=== PATIENT | male | born 1945 | race Caucasian/White ===

== ENCOUNTER → 2017-04-02 | Outpatient (CLI) | payer MEDICARE, OTHER ==
--- NOTE | 2017-04-02 15:53 | US ---
EXAMINATION TYPE: US venous doppler duplex LE LT DATE OF EXAM: 04/02/2017 2:54 PM COMPARISON: NONE CLINICAL HISTORY: R60.0 LOCALIZED EDEMA. Left leg edema. SIDE PERFORMED: Left TECHNIQUE: The lower extremity deep venous system is examined utilizing real time linear array sonog yaneth with graded compression, doppler sonography and color-flow sonography. VESSELS IMAGED: External Iliac Vein (EIV) Common Femoral Vein Deep Femoral Vein Greater Saphenous Vein * Femoral Vein Popliteal Vein Small Saphenous Vein * Proximal Calf Veins (* superficial vessels) Left Leg: Negative for DVT Grayscale, color doppler, spectral doppler imaging performed of the deep veins of the left lower extr emity. There is normal flow, compressibility, vascular waveforms in the left lower extremity. IMPRESSION: No ultrasound evidence for acute DVT in the left lower extremity.
== END | disposition home or self-care (01) ==
LOC: RADUSWWP 14:18
PROVIDERS: ATTEND Family Medicine
DX: R60.0 Localized edema (principal)

== ENCOUNTER → 2017-05-03 | Outpatient (CLI) | payer MEDICARE, OTHER ==
[2017-05-03 15:00] LABS: Potassium 4.5 mmol/L (3.5-5.1)
== END | disposition home or self-care (01) ==
LOC: LABWHC1 14:12
PROVIDERS: ATTEND Anesthesiology
DX: Z01.812 Encounter for preprocedural laboratory examination (principal)
CPT/HCPCS: 80051

== ENCOUNTER 2017-05-09 06:11 | Day surgery (SDC) | payer MEDICARE, OTHER ==
[2017-05-03 11:46] VITALS: BMI 35.2
[~2017-05-09 06:11] MED LIST: DEXAMETHASONE SOD PHOSPHATE 10 MG/ML 1 ML VIAL IV ONE; HEPARIN SODIUM,PORCINE 5,000 UNIT/ML 1 ML VIAL SQ ONE; LACTATED RINGERS 1,000 ML IV SCH; LIDOCAINE 1% 20 ML VIAL (10MG/ML) FOR IV START INTRADERMA PRN; MIDAZOLAM 2 MG/2 ML VIAL IV PRN; ONDANSETRON 4 MG/2 ML VIAL IVP ONE; SCOPOLAMINE 1.5MG/72HR PATCH TRANSDERM ONE; ceFAZolin 2 GM in SODIUM CHLORIDE 0.9% 100 ML IVPB ONE
--- NOTE | 2017-05-09 08:25 | P.GSHP ---
History of Present Illness H&P Date: 05/09/17 Chief Complaint: Incisional hernia This is a 71-year-old male who presents today for laparoscopic robotic-assisted repair of incisional hernia. Patient has developed an incisional hernia after reversal of colostomy. Patient's previous history of rectal foreign body with subsequent colostomy. He also developed a staph infection of his midline incision at the time of his colostomy Past Medical History Past Medical History: Atrial Fibrillation, Hyperlipidemia, Hypertension Additional Past Medical History / Comment(s): HX BOWEL OBSTRUCTION,.KIDNEY STONES, ARTHRITIS History of Any Multi-Drug Resistant Organisms: MRSA Date of last positivie culture/infection: 05/23/16 MDRO Source:: ABDOMINAL INCISION Past Surgical History: Bowel Resection, Heart Catheterization Additional Past Surgical History / Comment(s): I&D spider bite on back, fatty tumor removed from shoulder, COLOSTOMY. THEN ON 09-26-16 REVERSAL,. COLONOSCOPY Past Anesthesia/Blood Transfusion Reactions: No Reported Reaction Smoking Status: Former smoker - Past Family History Mother Family Medical History: No Reported History Medications and Allergies Home Medications Medication Instructions Recorded Confirmed Type Furosemide [Lasix] 20 mg PO BID 07/08/15 05/09/17 History Metoprolol Succinate [Toprol XL] 100 mg PO DAILY 07/08/15 05/09/17 History Potassium Chloride [Klor-Con 20] 20 meq PO BID 07/08/15 05/09/17 History Rivaroxaban [Xarelto] 20 mg PO DAILY 07/08/15 05/09/17 History Simvastatin [Zocor] 20 mg PO HS 07/08/15 05/09/17 History buPROPion HCL [Wellbutrin SR] 150 mg PO QAM 07/08/15 05/09/17 History Cholecalciferol [Vitamin D3] 5,000 unit PO DAILY 05/03/17 05/09/17 History Allergies Allergy/AdvReac Type Severity Reaction Status Date / Time No Known Allergies Allergy Verified 05/09/17 06:36 Surgical - Exam Vital Signs Temp Pulse Resp BP Pulse Ox 98.2 F 67 16 161/83 97 05/09/17 06:34 05/09/17 06:34 05/09/17 06:34 05/09/17 06:34 05/09/17 06:34 - General well developed, no distress - Eyes PERRL - ENT normal pinna - Neck no masses - Respiratory normal expansion - Cardiovascular Rhythm: regular - Abdomen 8 cm reducible incisional hernia located along his mid line scar. Abdomen: soft Assessment and Plan Plan: Incisional hernia. We'll perform laparoscopic robotic assistance repair.
[2017-05-09] MEDS ORDERED: MIDAZOLAM 2 MG/2 ML VIAL ONE (08:26)
[2017-05-09] MEDS ORDERED: SUCCINYLCHOLINE CHLORIDE VIAL 200 MG/10 ML VIAL IV ONE (08:26)
[2017-05-09] MEDS ORDERED: GLYCOPYRROLATE 0.2 MG/ML 2 ML VIAL ONE (08:26)
[2017-05-09] MEDS ORDERED: PROPOFOL 10 MG/ML 20 ML VIAL IV ONE (08:26)
[2017-05-09] MEDS ORDERED: NEOSTIGMINE 1 MG/ML 10 ML VIAL ONE (08:26)
[2017-05-09] MEDS ORDERED: LIDOCAINE 1% INJ 10MG/ML (20 ML MDV) ONE (08:26)
[2017-05-09] MEDS ORDERED: fentaNYL (PF) 50 MCG/ML 2 ML AMP ONE (08:26)
[2017-05-09] MEDS ORDERED: ROCURONIUM BROMIDE 10 MG/ML 10 ML VIAL IV ONE (08:26)
[2017-05-09] MEDS ORDERED: PHENYLEPHRINE-0.9% NACL SYG 1 MG/10 ML SYRINGE ONE (08:26)
[2017-05-09] MEDS ORDERED: BUPIVACAIN-EPI 0.25%-1:200,000 30 ML VIAL SQ ONE (08:52)
[2017-05-09] MEDS ORDERED: LACTATED RINGERS 1,000 ML IV ONE (09:07)
[2017-05-09 10:50] VITALS: TEMP 97.8
[2017-05-09] MEDS: HYDROmorphone 1 MG/ML 1 ML SYRINGE IVP PRN ×6 (10:50→11:46)
--- NOTE | 2017-05-09 11:22 | P.OP ---
Date of Procedure: 05/09/17 Preoperative Diagnosis: Incisional hernia Postoperative Diagnosis: Incisional hernia Adhesions Procedure(s) Performed: Laparoscopic robotic-assisted repair of incisional hernia Laparoscopic lysis of extensive adhesions Implants: Anesthesia: INDRAA Surgeon: Suresh Naidu Estimated Blood Loss (ml): 15 Pathology: none sent Condition: stable Disposition: PACU Indications for Procedure: Operative Findings: Description of Procedure: Patient's placed on the operative table in the supine position. He received general anesthesia. His abdomen was prepped and draped usual sterile fashion. The skin incision sites were anesthetized 1% local Xylocaine. The abdomen was entered in the right upper quadrant. Using a blade less 5 mm optical trocar the peritoneal cavity is entered under direct visualization. After adequate insufflation the laparoscope was placed back the pleural cavity. Next a 8 mm robotic trochars placed in right lower quadrant and then a 12 mm trochars placed in the right lateral position. And the original 5 mm trocar was exchanged for an 8 mm robotic trocar. The patient's placed in the right side up position. He was undocked the robot. The patient extensive adhesions on the midline. Using the Metzenbaum scissors and hook cautery the adhesions were lysed robotically. The proximal a 45 minutes of operative time used to lyse the extensive adhesions. Once the adhesions were lysed. The fascial defect was incised. The fascial defect was then closed with #1 stratify suture. 2 sutures used to close the fascial defect. Next the repair was buttressed with ventral light ST mesh. And this was secured with 20 the lock suture. The patient was then undocked the robot. The needles were retrieved. The fascia of the 12 mm trocar site was closed with 0 Ethibond suture. The skin was closed interrupted 3-0 Monocryl suture. Dermabond was applied. Patient top she will was sent to recovery in stable condition.
[2017-05-09] MEDS ORDERED: HYDROcodone/APAP 7.5-325MG 1 EACH TAB PO ONE (12:28)
[2017-05-09 14:02] VITALS: RESP 18
[2017-05-09 14:03] VITALS: PULSE 71
[2017-05-09 14:04] VITALS: BP 132/65
== END 2017-05-09 14:57 | disposition home or self-care (01) ==
LOC: OR 06:11
PROVIDERS: ATTEND Surgery
DX: K43.2 Incisional hernia without obstruction or gangrene (principal); K66.0 Peritoneal adhesions (postprocedural) (postinfection); I48.91 Unspecified atrial fibrillation; Z79.01 Long term (current) use of anticoagulants; E78.5 Hyperlipidemia, unspecified; I10 Essential (primary) hypertension; Z87.891 Personal history of nicotine dependence; F41.9 Anxiety disorder, unspecified; F32.9 Major depressive disorder, single episode, unspecified; Z79.899 Other long term (current) drug therapy; Z93.3 Colostomy status
CPT/HCPCS: 49654; C1781; J2250; J0330; J1644; J1100; J2710; J0690; J2405; J2001; J3010; J1170; J2370; J2704

== ENCOUNTER → 2018-12-05 | Outpatient (CLI) | payer MEDICARE, OTHER ==
[2018-12-05 12:43] LABS: HCT 45.6 % (39.0-53.0); MCH 31.8 pg (25.0-35.0); MCHC 32.8 g/dL (31.0-37.0); MCV 97.2 fL (80.0-100.0); Platelet Count 184 k/uL (150-450); RDW 12.8 % (11.5-15.5)
[2018-12-05 12:54] LABS: Potassium 4.6 mmol/L (3.5-5.1)
== END ==
LOC: LABPAT 12:08
PROVIDERS: ATTEND Internal Medicine Interventional Cardiology
DX: Z01.812 Encounter for preprocedural laboratory examination (principal); I25.10 Atherosclerotic heart disease of native coronary artery without angina pectoris; I10 Essential (primary) hypertension; R07.9 Chest pain, unspecified
CPT/HCPCS: 80051; 82565; 84520; 85027

== ENCOUNTER → 2018-12-11 | Day surgery (SDC) | payer MEDICARE, OTHER ==
[2018-12-05 12:45] VITALS: BMI 27.7
[~2018-12-11] MED LIST changes: +ALPRAZolam 0.25 MG TAB PO PRN; +ALPRAZolam 0.5 MG TAB PO ONE; +ALPRAZolam 0.5 MG TAB PO PRN; +ASPIRIN 325 MG TAB PO STA; +ATORVASTATIN 80 MG TAB PO STA; -DEXAMETHASONE SOD PHOSPHATE 10 MG/ML 1 ML VIAL IV ONE; +HEPARIN SODIUM 1,000 UN/ML (10ML VL) IV ONE; -HEPARIN SODIUM,PORCINE 5,000 UNIT/ML 1 ML VIAL SQ ONE; +IOPAMIDOL-370 125ML BTL INJ ONE; -LACTATED RINGERS 1,000 ML IV SCH; -LIDOCAINE 1% 20 ML VIAL (10MG/ML) FOR IV START INTRADERMA PRN; +LIDOCAINE 1% INJ 10MG/ML (20 ML MDV) SQ ONE; +MIDAZOLAM 2 MG/2 ML VIAL IV ONE; -MIDAZOLAM 2 MG/2 ML VIAL IV PRN; +NITROGLYCERIN SL TABS 0.4 MG TAB SUBLINGUAL PRN; -ONDANSETRON 4 MG/2 ML VIAL IVP ONE; +RX INFO: IV CONTRAST WAS GIVEN 1 EACH MISC MISCELLANE PRN; -SCOPOLAMINE 1.5MG/72HR PATCH TRANSDERM ONE; +SODIUM CHLORIDE 0.9% 1,000 ML IV ONE; +SODIUM CHLORIDE 0.9% 1,000 ML IV SCH; +SODIUM CHLORIDE 0.9% 1,000 ML in EMPTY BAG 1 BAG IV ONE; +VERAPAMIL SYRINGE (5 MG/10 ML) INTRAARTER ONE; -ceFAZolin 2 GM in SODIUM CHLORIDE 0.9% 100 ML IVPB ONE
[2018-12-11 07:28] VITALS: TEMP 98.3
--- NOTE | 2018-12-11 09:15 | CC ---
CARDIAC CATHETERIZATION REPORT DATE OF SERVICE: December 11, 2018 PERFORMING PHYSICIAN: Melvin Sears MD, mash processing operator. PROCEDURE PERFORMED: 1. Selective right and left coronary angiogram. 2. Left heart catheterization. INDICATION: This is a pleasant 73-year-old gentleman with history of chronic atrial fibrillation, hypertension, and dyslipidemia, who was experiencing symptoms of exertional dyspnea quite concerning for angina equivalent. Because the symptoms are of new onset and getting more often and more intense, I decided to pursue with a heart catheterization to rule out any severe underlying coronary artery disease. APPROACH: Right radial artery. COMPLICATION: None. LEVEL OF SEDATION: Moderate with sedation length of 14 minutes. PROCEDURE DESCRIPTION: After obtaining an informed consent, the patient was brought to cardiac laboratory sampler. The right radial artery was cannulated using micropuncture technique, the micropuncture wire passed easily then I placed a 6-Romanian sheath in the right radial artery. After that I gave the patient 2 mg of verapamil IA and 8000 units of heparin IV. I did selective right and left coronary angiogram using JR4 and JL3.5 catheters. Left heart catheterization was performed using the JR4 catheter which flipped into the LV and across the aortic valve. Then I did pullback across aortic valve. The procedure was completed without any complication. SELECTIVE CORONARY ANGIOGRAM: 1. The right coronary artery is a large caliber vessel and it is a dominant vessel and appeared to be angiographically normal. It distally bifurcates into PDA and PLV branches, both are angiographically normal. 2. The left main is angiographically normal. It bifurcates into the circumflex and left anterior descending artery. 3. The left circumflex is a large caliber vessel. It is a nondominant vessel. The left circumflex itself is angiographically normal. It gives rise into 3 obtuse marginal branches, they appear to be angiographically normal. 4. LAD: The proximal LAD appeared to be angiographically normal. The mid LAD is normal and gives rise into a medium-sized diagonal branch which appeared to be normal. The LAD distally appeared to be angiographically normal. HEMODYNAMIC: The left ventricular end-diastolic pressure was 4 to 8 mmHg without significant gradient across the aortic valve. CONCLUSIONS: 1. Normal coronary angiogram. 2. Normal left ventricular end-diastolic pressure. POSTPROCEDURE MANAGEMENT: Medical treatment and follow up with the patient. MMODL / IJN: [id number] /
--- NOTE | 2018-12-11 09:30 | LTR ---
December 11, 2018 Re: Arslan Alanis Dear Dr. Barrera: Mr. Arslan Alanis underwent a heart catheterization and that revealed normal coronaries. I want to thank you for allowing us to participate in his care and please do not hesitate to call if you have any question or concern. Sincerely, MD YANICK Stevens / [place]: [id number] /
[2018-12-11 11:51] VITALS: BP 128/60; PULSE 60; RESP 16
== END ==
LOC: CATHCVL 06:08
PROVIDERS: ATTEND Internal Medicine Interventional Cardiology
DX: I20.0 Unstable angina (principal); I48.2 Chronic atrial fibrillation; E78.5 Hyperlipidemia, unspecified; I10 Essential (primary) hypertension; Z72.0 Tobacco use; Z79.01 Long term (current) use of anticoagulants; Z79.899 Other long term (current) drug therapy; E78.00 Pure hypercholesterolemia, unspecified
CPT/HCPCS: 93458; C1894; J2250; J2001; J1644; Q9967

== ENCOUNTER → 2021-01-24 | Outpatient (CLI) | payer MEDICARE, OTHER ==
--- NOTE | 2021-01-24 21:15 | US ---
EXAMINATION TYPE: US bladder DATE OF EXAM: 01/24/2021 COMPARISON: NONE CLINICAL HISTORY: 75-year-old male R39.15 urgency of urination. Unable to urinate TECHNIQUE: Multiple sonographic images of the bladder are obtained. FINDINGS: No gross abnormality of the initially partially urine distended bladder. Post Void Residual Volume: 37.4 mL Color Doppler performed to assess ureteral jets. Bilateral Jets seen: yes IMPRESSION: Increased postvoid bladder volume of 37 mL still falls within acceptable limits (<50 mL).
== END | disposition home or self-care (01) ==
LOC: RADUSWWP 16:39
PROVIDERS: ATTEND Family Medicine
DX: R39.15 Urgency of urination (principal)
CPT/HCPCS: 76857

== ENCOUNTER → 2021-03-31 | Outpatient (CLI) | payer MEDICARE, OTHER ==
--- NOTE | 2021-03-31 15:28 | XR ---
EXAMINATION TYPE: XR chest 2V DATE OF EXAM: 03/31/2021 COMPARISON: 09/29/2016 HISTORY: Preoperative clearance TECHNIQUE: Frontal and lateral views of the chest are obtained. FINDINGS: There is no focal air space opacity, pleural effusion, or pneumothorax seen. The cardiac silhouette size is within normal limits. The osseous structures are intact. IMPRESSION: No acute cardiopulmonary process.
== END | disposition home or self-care (01) ==
LOC: LABPAT 13:54
PROVIDERS: ATTEND Orthopaedic Surgery Orthopaedic Surgery of the Spine
DX: Z01.812 Encounter for preprocedural laboratory examination (principal); Z01.810 Encounter for preprocedural cardiovascular examination; Z01.818 Encounter for other preprocedural examination; M51.26 Other intervertebral disc displacement, lumbar region; Z79.01 Long term (current) use of anticoagulants
CPT/HCPCS: 36415; 71046; 93005

== ENCOUNTER 2021-04-11 07:31 | Day surgery (SDC) | payer MEDICARE, OTHER ==
[2021-04-04 14:57] VITALS: BMI 34.9
[~2021-04-11 07:31] MED LIST changes: -ALPRAZolam 0.25 MG TAB PO PRN; -ALPRAZolam 0.5 MG TAB PO ONE; -ALPRAZolam 0.5 MG TAB PO PRN; -ASPIRIN 325 MG TAB PO STA; -ATORVASTATIN 80 MG TAB PO STA; +DEXAMETHASONE SOD PHOSPHATE 4 MG/ML 1 ML VIAL IV ONE; -HEPARIN SODIUM 1,000 UN/ML (10ML VL) IV ONE; +HYDROmorphone 0.5 MG/0.5 ML SYRINGE IVP PRN; -IOPAMIDOL-370 125ML BTL INJ ONE; -LIDOCAINE 1% INJ 10MG/ML (20 ML MDV) SQ ONE; -MIDAZOLAM 2 MG/2 ML VIAL IV ONE; +MIDAZOLAM 2 MG/2 ML VIAL IV PRN; -NITROGLYCERIN SL TABS 0.4 MG TAB SUBLINGUAL PRN; +ONDANSETRON 4 MG/2 ML VIAL IVP ONE; -RX INFO: IV CONTRAST WAS GIVEN 1 EACH MISC MISCELLANE PRN; -SODIUM CHLORIDE 0.9% 1,000 ML IV ONE; -SODIUM CHLORIDE 0.9% 1,000 ML IV SCH; -SODIUM CHLORIDE 0.9% 1,000 ML in EMPTY BAG 1 BAG IV ONE; -VERAPAMIL SYRINGE (5 MG/10 ML) INTRAARTER ONE; +ceFAZolin 1,000 MG in SODIUM CHLORIDE 0.9% IRRIGATIO 1,000 ML IRRIGATION PRN
[2021-04-11 08:34] LABS: Glucose,Whole Blood 88 mg/dL (75-99)
[2021-04-11] MEDS ORDERED: LIDOCAINE 1% (10MG/ML) FOR IV START INTRADERMA ONE (08:42)
[2021-04-11] MEDS: LACTATED RINGERS 1,000 ML IV SCH (08:42)
--- NOTE | 2021-04-11 09:11 | P.HPOR ---
History of Present Illness H&P Date: 04/11/21 Chief Complaint: Bilateral lower extremity weakness Past Medical History Past Medical History: Atrial Fibrillation, Hearing Disorder / Deafness, Hyperlipidemia, Hypertension, Osteoarthritis (OA) Additional Past Medical History / Comment(s): HX BOWEL OBSTRUCTION,.KIDNEY STONES, ARTHRITIS History of Any Multi-Drug Resistant Organisms: MRSA Date of last positivie culture/infection: unknown MDRO Source:: back Past Surgical History: Bowel Resection, Heart Catheterization Additional Past Surgical History / Comment(s): I&D spider bite on back, fatty tumor removed from shoulder, COLOSTOMY. THEN ON 09-26-16 REVERSAL,. COLONOSCOPY Past Anesthesia/Blood Transfusion Reactions: No Reported Reaction Smoking Status: Former smoker - Past Family History Mother Family Medical History: No Reported History Medications and Allergies Home Medications Medication Instructions Recorded Confirmed Type Furosemide [Lasix] 20 mg PO BID 07/08/15 04/11/21 History Metoprolol Succinate [Toprol XL] 100 mg PO DAILY 07/08/15 04/11/21 History Potassium Chloride [Klor-Con 20] 20 meq PO DAILY 07/08/15 04/11/21 History Simvastatin [Zocor] 20 mg PO HS 07/08/15 04/11/21 History buPROPion HCL [Wellbutrin SR] 300 mg PO QAM 07/08/15 04/11/21 History Cholecalciferol [Vitamin D3 (25 5,000 unit PO DAILY 05/03/17 04/11/21 History Mcg = 1000 Iu)] Famotidine [Pepcid] 20 mg PO DAILY 04/04/21 04/11/21 History Rivaroxaban [Xarelto] 20 mg PO HS 04/04/21 04/11/21 History predniSONE See Taper PO DIRECTED 04/04/21 04/11/21 History Allergies Allergy/AdvReac Type Severity Reaction Status Date / Time No Known Allergies Allergy Verified 04/11/21 08:20 Physical Examination Osteopathic Statement: *. No significant issues noted on an osteopathic structural exam other than those noted in the History and Physical/Consult. Assessment and Plan Plan: This is an addendum to the H&P from the office. The patient's H&P has been scanned from our office. The patient is seen and examined at bedside today. I agree with the history and physical, however it does show the possibility of lumbar fusion which is not planned for today. Patient has bilateral lower extremity weakness. These findings correlated with severe stenosis at L1-2 and L2-3 with a likely disc herniation and early cauda equina syndrome. Given the patient's imaging and his symptoms we plan to proceed with surgical intervention today as planned. We discussed the possibility of decompression versus possibly decompression and fusion. His initial H&P discussed the possibility of decompression and fusion but our plan today is to proceed with laminectomy decompression and discectomy at L1-2 L2-3. The decompression is appropriately noted in the consent form. We will plan for laminectomy decompression with discectomy L1-2 and L2-3 today.
[2021-04-11] MEDS ORDERED: GELATIN SPONGE,ABSORB (LARGE) 1 EACH SPONGE TOPICAL ONE (09:36)
[2021-04-11] MEDS ORDERED: THROMBIN (BOVINE) 5,000 UNIT VIAL TOPICAL ONE (09:36)
[2021-04-11] MEDS ORDERED: methylPREDNISolone ACETATE 40 MG/ML 1 ML VIAL MISCELLANE ONE (09:36)
[2021-04-11] MEDS ORDERED: LIDOCAINE 0.5%-EPI 1:200,000 50 ML VIAL SQ ONE (09:36)
[2021-04-11] MEDS ORDERED: LACTATED RINGERS 1,000 ML IV ONE (11:11)
[2021-04-11] MEDS ORDERED: HYDROmorphone 1 MG/ML 1 ML SYRINGE IVP PRN (11:31)
[2021-04-11] MEDS ORDERED: HYDROmorphone 0.5 MG/0.5 ML SYRINGE IVP PRN (11:31)
[2021-04-11] MEDS ORDERED: KETOROLAC 15 MG/ML 1 ML VIAL IVP PRN (11:31)
[2021-04-11] MEDS ORDERED: BENZOCAINE/MENTHOL LOZENG 1 EACH LOZENGE MUCOUS MEM PRN (11:31)
[2021-04-11] MEDS ORDERED: HYDROcodone/APAP 5-325MG 1 EACH TAB PO PRN (11:31)
[2021-04-11] MEDS ORDERED: ONDANSETRON 4 MG/2 ML VIAL IVP PRN (11:31)
--- NOTE | 2021-04-11 11:45 | P.OP ---
Date of Procedure: 04/11/21 Preoperative Diagnosis: Cauda equina syndrome, stenosis L1-2 L2-3, herniated nucleus stenosis L1-2 L2-3, lower extremity weakness, degenerative disc disease, degenerative scoliosis Postoperative Diagnosis: Cauda equina syndrome, stenosis L1-2 L2-3, herniated nucleus pulposis L1-2 L2-3, lower extremity weakness, degenerative disc disease, degenerative scoliosis, Plus findings of vascular anomaly with small epidural hematoma Anesthesia: GETA Pathology: none sent Condition: stable Disposition: PACU Description of Procedure: BRIEF OPERATIVE NOTE Preoperative Diagnosis:Cauda equina syndrome, stenosis L1-2 L2-3, herniated nucleus stenosis L1-2 L2-3, lower extremity weakness, degenerative disc disease, degenerative scoliosis Postoperative Diagnosis:Cauda equina syndrome, stenosis L1-2 L2-3, herniated nucleus stenosis L1-2 L2-3, lower extremity weakness, degenerative disc disease, degenerative scoliosis, plus findings of small vascular anomaly at L1-2 with epidural hematoma Procedure: Laminectomy and decompression L1-2 L2-3 Discectomy for decompression L1-2 L2-3 Evacuation of epidural hematoma L1-2 L2-3 with cauterization of vascular anatomy anomaly Surgeon: Dr. Terrell Rfid Engineer: Rich CHAVIRA who is present throughout the entire the case persistence during positioning, dissection, exposure, visualization, and all crucial elements of the case as well as closure. Anesthesia: General anesthesiaPer Dr. Dr. Collado Estimated blood loss:Approximately 100 mL Complications: None apparent Components implanted:None Disposition: To recovery room in good stable condition. OPERATIVE INDICATIONS The patient has been having issues in their lower back and lower extremities. the patient has been having worsening issues with his mobilization ambulation. He's been having some difficulty with his coronation in his lower extremities. He is not having changes in his bowel bladder function was having some worsening troubles with his back. He was having some problems with his balance as well. His found have evidence of likely disc extrusion at L1-2 and L2-3 with severe stenosis at that level. His symptoms were consistent with his findings and the possibility of cauda equina syndrome. He is having weakness in his lower extremities. The patient has been through conservative treatment. he is not having significant benefit despite conservative treatment and we discussed the possibility of surgical intervention for decompression at that level. We have discussed the possibly of decompression and fusion given the fact that he does have multiple degenerative changes at his lumbar spine with disc changes and degenerative scoliosis. The patient was not having limitations due to his back pain and was not interested in fusion surgery. We discussed the possibility of decompression laminectomy and possibly discectomy alone. Patient understood the issues involved with his severe findings at his lumbar spine and his lower extremity issues. We discussed various treatment options including surgery, and the patient wishes to proceed with surgery We discussed the risk, patient's alternatives and benefits of surgery including but not limited to, risk of bleeding risk of infection, risk of need for further surgery, risk of decreased, loss of motion, loss of function, nerve damage, paralysis, heart attack, blindness and . OPERATIVE SUMMARY After discussing all the risks, patient alternatives and benefits at length, the patient elected to proceed with surgical intervention, signed informed consent, and presented for their procedure. The patient was seen and examined in the preoperative holding area and the surgical site was marked. The patient was given antibiotics and brought to the operating room. The patient was sedated and intubated by anesthesia in standard fashion. The patient was positioned on to the operating room table in a prone position on the appropriate frame which was well-padded and well molded. We were careful to pad any bony prominences and pressure points. We were careful to maintain the patient's cervical spine and good neutral alignment and position throughout. The patient was prepped and draped in a normal standard fashion. An appropriate timeout and keystone protocol performed. We were able to proceed with the surgery. Fluoroscopy was utilized to establish the appropriate level. The local wound area was infiltrated with local anesthetic. An incision was made at the midline longitudinally over the appropriate levels At L1-2 and 3. Dissection was taken down subcutaneously to the level of the fascia which was split midline. Dissection was taken over the lamina. Intraoperative fluoroscopy was taken which showed a marker at the appropriate level The other pedicle of L2 3 with direction toward the L2-3 disc. With the appropriate level positively confirmed, we were able to proceed with laminectomy. I started at L2-3 and then moved up to L1-2 The wound was copiously irrigated and suctioned dry as had been done periodically throughout the case. I performed a laminectomy with a combination of curettes and a high- speed bur and Kerrison rongeurs. A small medial facetectomy was performed again further access. A partial foraminotomy was also performed. Portions of the ligamentum flavum were taken down to expose the dura and traversing nerve root. I was able to mobilize the traversing nerve root and gain access to the disc space. at L2-3 and did not find any obvious disc protrusion or herniation. There is very small fragments of disc which I was able to remove. There was compression behind the L2 achievable body. I did not find a specific discrete mass. There were no further extruded fragments noted At L2-3. There is no evidence of dural tear or leak. Good hemostasis maintained. I moved up to the L1-2 level and performed a similar laminectomy medial facetectomy and foraminotomy. I dissected down along the pedicle of L2 on the left behind the vertebral body of L2. There is significant compression and I was able to decompress dorsally appropriately. Ventral to the dura there was vascular anomaly with expanded blood vessels at the area. These seem to be causing significant compression and there was some small hematoma around that space causing further compression. As able cauterize those blood vessels and remove small portions of hematoma. I did not find further extruded fragments but remove the small fragments behind L2. The nerve root was significant only mobilize and I did not note any further significant compression at the dura. During the entire time particularly at L1-2 I used great care to do minimal medial retraction of the dura or nerve roots as his conus extends behind L1. We essentially did not perform any medial compression or distraction along the dura at that level. The wound was copiously irrigated and suctioned dry.I felt we had good decompression at L1-2 and L2-3 with good hemostasis and no evidence of any dural tear or leak. Good decompression was noted. We were able to proceed with closure. The fascia was closed for a watertight closure. The subcuticular tissue was closed with absorbable suture. The wound was cleaned and dried and dressed with the appropriate dressing. The drapes were broken down. The patient was gently rolled back onto their hospital bed being careful to maintain their cervical spine and good neutral alignment and position. They were woken up by anesthesia, extubated, and brought to the recovery room in good stable condition. The patient will be admitted to the hospital for observation and for appropriate postoperative care, medical management and monitoring. We will continue to follow them closely about the postoperative course.
[2021-04-11] MEDS: SODIUM CHLORIDE 0.9% 1,000 ML IV SCH (17:23)
[2021-04-11] MEDS: FUROSEMIDE 20 MG TAB PO SCH (20:18)
[2021-04-11] MEDS: CYCLOBENZAPRINE 10 MG TAB PO PRN (20:56)
[2021-04-11] MEDS ORDERED: ATORVASTATIN 10 MG TAB PO SCH (21:00)
[2021-04-12] MEDS: SODIUM CHLORIDE 0.9% 1,000 ML IV SCH (04:16)
[2021-04-12] MEDS: LACTATED RINGERS 1,000 ML IV SCH (07:34)
[2021-04-12] MEDS: FUROSEMIDE 20 MG TAB PO SCH (08:30)
[2021-04-12] MEDS: CYCLOBENZAPRINE 10 MG TAB PO PRN (08:30)
[2021-04-12] MEDS ORDERED: FAMOTIDINE 20 MG TAB PO SCH (09:00)
[2021-04-12] MEDS ORDERED: POTASSIUM CHLORIDE ER 20 MEQ TAB.ER PO SCH (09:00)
[2021-04-12] MEDS ORDERED: SENNOSIDES-DOCUSATE SODIUM 1 EACH TAB PO SCH (09:00)
[2021-04-12] MEDS ORDERED: buPROPion SR 150 MG TABLET.ER PO SCH (09:00)
[2021-04-12] MEDS ORDERED: CHOLECALCIFEROL 25 MCG (1000 IU) TABLET PO SCH (09:00)
[2021-04-12] MEDS ORDERED: METOPROLOL SUCCINATE (ER) 100 MG TAB.ER.24H PO SCH (09:00)
--- NOTE | 2021-04-12 09:52 | FL ---
EXAMINATION TYPE: FL guidance operating room, XR lumbar spine 2 or 3V DATE OF EXAM: 04/11/2021 CLINICAL HISTORY: Surgical hardware placement TECHNIQUE: Fluoroscopy. COMPARISON: None. Impression: Fluoroscopic guidance was provided during procedure performed by Dr. Terrell. A total of 1 seconds of fluoroscopic time was utilized during the procedure 1 scanned nondiagnostic image.
[2021-04-12 11:43] VITALS: BP 129/68; PULSE 85; RESP 18; TEMP 97.8
--- NOTE | 2021-04-12 12:43 | P.DS ---
Providers Date of admission: 04/11/2021 Expected date of discharge: 04/12/21 Attending physician: Radha Terrell Primary care physician: Chong Barrera - Discharge Diagnosis(es) (1) Epidural hematoma Current Visit: Yes Status: Acute (2) Lumbar stenosis Current Visit: Yes Status: Acute (3) Lumbar degenerative disc disease Current Visit: Yes Status: Acute (4) Lower extremity weakness Current Visit: Yes Status: Acute (5) Atrial fibrillation Current Visit: Yes Status: Acute (6) Hyperlipidemia Current Visit: Yes Status: Acute (7) Hypertension Current Visit: Yes Status: Acute (8) Obesity (BMI 30-39.9) Current Visit: Yes Status: Acute (9) Cauda equina syndrome Current Visit: Yes Status: Acute Hospital Course: This is a pleasant 75-year-old male who presented with cauda equina syndrome, L1-2 and a L2-3 herniated nucleus pulposus with stenosis, lower extremity weakness, lumbar degenerative disc disease, and lumbar degenerative scoliosis who failed outpatient conservative therapy. He was admitted for surgical intervention and underwent an L1-2 and L2-3 laminectomy and decompression with discectomy and evacuation of epidural hematoma. Postoperatively, he has had significant improvement of his symptoms. He states he is urinating better and each time he urinates it continues to improve. He is not currently experiencing any lower extremity radiculopathy bilaterally. He is able to ambulate the hallways without difficulty. His pain is well-controlled with cyclobenzaprine. He is able to change positions in bed without significant difficulty. He is ready for discharge today. The patient tolerated the procedure well and did well postoperatively. Condition on day of discharge stable. Patient will be discharged home. Patient was cleared preoperatively for surgery by Dr. Barrera. Patient currently denies any nausea, vomiting, fever, or chills. Patient is eating and voiding freely without difficulty. Patient may shower Optifoam dressing intact. Patient may remove Optifoam dressing in 3 days and shower without a dressing at that time. Patient should refrain from driving until at least after their first follow-up appointment in the office. Patient should avoid excessive bending, lifting, and twisting; no lifting greater than 10 pounds. MAPS has been reviewed today, 04/12/2021, with an Overall Overdose Risk Score of 000. An "Opiod Start Talking" Form has been signed and placed in the patient's chart. A prescription has been written for [place] 5 mg/325 mg 1 tablet every 8 hours as needed for pain, dispensed #21. He is also given a prescription for cyclobenzaprine one tab 3 times a day at the for muscle spasm, dispensed 45. Patient's other medical diagnoses include atrial fibrillation, hyperlipidemia, hypertension, and obesity. Patient may resume other previously prescribed home medications. Physical Exam on day of discharge: Patient is awake, alert, and oriented 3 Vital signs stable Good chest excursion with deep inspiration and expiration Abdomen soft nontender No signs or symptoms of DVT; no calf pain Extensor hallucis longus, plantarflexion, and dorsiflexion positive sustained bilateral lower extremities Patient is able to change positions in bed without any significant difficulty Patient is able to stand from a seated position well without difficulty Incision is clean, dry, and intact; no erythema, purulence, or signs of infection Optifoam dressing intact Procedures: L1-2 and L2-3 laminectomy and decompression with discectomy and evacuation of epidural hematoma. Patient Condition at Discharge: Stable Plan - Discharge Summary Discharge Rx Participant: Yes New Discharge Prescriptions: New Cyclobenzaprine [Flexeril] 10 mg PO TID PRN #45 tab PRN Reason: Muscle Spasm HYDROcodone/APAP 5-325MG [[place] 5] 1 each PO Q8HR PRN #21 tab PRN Reason: Pain No Action buPROPion HCL [Wellbutrin SR] 300 mg PO QAM Simvastatin [Zocor] 20 mg PO HS Metoprolol Succinate [Toprol XL] 100 mg PO DAILY Potassium Chloride [Klor-Con 20] 20 meq PO DAILY Furosemide [Lasix] 20 mg PO BID Cholecalciferol [Vitamin D3 (25 Mcg = 1000 Iu)] 5,000 unit PO DAILY predniSONE See Taper PO DIRECTED Rivaroxaban [Xarelto] 20 mg PO HS Famotidine [Pepcid] 20 mg PO DAILY Discharge Medication List Furosemide [Lasix] 20 mg PO BID 07/08/15 [History] Metoprolol Succinate [Toprol XL] 100 mg PO DAILY 07/08/15 [History] Potassium Chloride [Klor-Con 20] 20 meq PO DAILY 07/08/15 [History] Simvastatin [Zocor] 20 mg PO HS 07/08/15 [History] buPROPion HCL [Wellbutrin SR] 300 mg PO QAM 07/08/15 [History] Cholecalciferol [Vitamin D3 (25 Mcg = 1000 Iu)] 5,000 unit PO DAILY 05/03/17 [History] Famotidine [Pepcid] 20 mg PO DAILY 04/04/21 [History] Rivaroxaban [Xarelto] 20 mg PO HS 04/04/21 [History] predniSONE See Taper PO DIRECTED 04/04/21 [History] Cyclobenzaprine [Flexeril] 10 mg PO TID PRN #45 tab 04/12/21 [Rx] HYDROcodone/APAP 5-325MG [[place] 5] 1 each PO Q8HR PRN #21 tab 04/12/21 [Rx] Follow up Appointment(s)/Referral(s): Rich Vera, LUIS [PHYSICIAN WASTE WATER OR WATER PLANT OPERATOR] - 2 Weeks (Patient may follow-up with Rich Vera PA-C or Dr. Landry Terrell at [facility] in 2-3 weeks following discharge. ) Activity/Diet/Wound Care/Special Instructions: 1. Patient may shower with Optifoam dressing intact. 2. Patient may remove Optifoam dressing in 4 days and shower without a dressing at that time. 3. Patient should refrain from driving until at least after their first follow- up appointment in the office. 4. Patient should avoid excessive bending, twisting, lifting; avoid overhead lifting; no lifting greater than 10 pounds 5. Take medications as prescribed 6. Do not soak in tub Discharge Disposition: HOME SELF-CARE
[2021-04-12] MEDS ORDERED: RIVAROXABAN 20 MG TAB PO SCH (21:00)
== END 2021-04-12 14:28 | disposition home or self-care (01) ==
LOC: OR 07:31 → 5NMEDONC 11:37 → OR 04-12 14:28
PROVIDERS: ATTEND Orthopaedic Surgery Orthopaedic Surgery of the Spine
DX: G83.4 Cauda equina syndrome (principal); M51.26 Other intervertebral disc displacement, lumbar region; M48.061 Spinal stenosis, lumbar region without neurogenic claudication; M51.36 Other intervertebral disc degeneration, lumbar region; M41.9 Scoliosis, unspecified; T14.8XXA Other injury of unspecified body region, initial encounter; I48.91 Unspecified atrial fibrillation; H91.90 Unspecified hearing loss, unspecified ear; F32.9 Major depressive disorder, single episode, unspecified; E78.5 Hyperlipidemia, unspecified; I10 Essential (primary) hypertension; M19.90 Unspecified osteoarthritis, unspecified site; Z87.891 Personal history of nicotine dependence; Z87.442 Personal history of urinary calculi; Z86.14 Personal history of Methicillin resistant Staphylococcus aureus infection; Z90.49 Acquired absence of other specified parts of digestive tract; Z98.890 Other specified postprocedural states; Z79.899 Other long term (current) drug therapy; Z79.01 Long term (current) use of anticoagulants
CPT/HCPCS: 97162; 72100; 63047; 63048; 22015; J2250; J1030; S0106; J0690 ×3; J2405; 86850; 86900; 86901

== ENCOUNTER → 2022-12-29 | Outpatient (CLI) | payer MEDICARE, OTHER ==
[2022-12-29 22:53] LABS: HCT 48.6 % (39.6-50.0); HGB 15.4 g/dL (13.0-17.0); MCH 30.7 pg (27.0-32.0); MCHC 31.7 g/dL (32.0-37.0); MCV 96.8 fL (80.0-97.0); Mean Platelet Volume 11.1 fL (9.5-12.2); NRBC Per 100 WBC 0 /100 WBCS (0.0-0.0); Platelet Count 200 X 10*3/uL (140-440); RBC 5.02 X 10*6/uL (4.40-5.60); RDW 12.7 % (11.5-14.5); WBC 6.04 X 10*3/uL (4.50-10.00)
[2022-12-30 00:09] LABS: ALT 15 U/L (10-49); AST 18 U/L (14-35); African American GFR (CKD) 76.6 (60.0-200.0); BUN/Creat Ratio 14.59 Ratio (12.00-20.00); Blood Urea Nitrogen 15.9 mg/dL (9.0-27.0); Calcium 9.2 mg/dL (8.7-10.3); Carbon Dioxide 26.1 mmol/L (20.0-27.5); Chloride 105 mmol/L (96-109); Chol/HDL Ratio 3.16 Ratio; Glucose 113 mg/dL (70-110); LDL Cholesterol,Calculated 78.3 mg/dL (0.0-131.0); Non-African American GFR(CKD) 66.1 (60.0-200.0); Potassium 4.2 mmol/L (3.5-5.5); Sodium 141 mmol/L (135-145)
== END | disposition home or self-care (01) ==
LOC: LABWHC1 14:22
PROVIDERS: ATTEND Family Medicine
DX: E78.5 Hyperlipidemia, unspecified (principal); E66.9 Obesity, unspecified; I10 Essential (primary) hypertension
CPT/HCPCS: 36415; 80048; 80061; 82306; 83036; 84450; 84460; 85027

== ENCOUNTER → 2023-03-08 | Outpatient (CLI) | payer MEDICARE, OTHER ==
--- NOTE | 2023-03-09 06:23 | US ---
EXAMINATION TYPE: US kidneys/renal and bladder DATE OF EXAM: 03/08/2023 COMPARISON: NONE CLINICAL INDICATION: Male, 77 years old with history of M54.50 LOW BACK PAIN; lt flank pain EXAM MEASUREMENTS: Right Kidney: 11.3 x 4.9 x 6.3 cm Left Kidney: 11.3 x 4.2 x 5.9 cm Right Kidney: No hydronephrosis or masses seen Left Kidney: No hydronephrosis or masses seen Bladder: wnl Bilateral Jets seen: yes Increased cortical echogenicity bilaterally. There is no evidence for hydronephrosis at this point in time. No nephrolithiasis is seen. No masses are identified. The urinary bladder is adequately dis tended. Bilateral ureteral jets are seen. IMPRESSION: No hydronephrosis is seen bilaterally.
== END | disposition home or self-care (01) ==
LOC: RADUSWWP 15:15
PROVIDERS: ATTEND Family Medicine
DX: M54.50 Low back pain, unspecified (principal)
CPT/HCPCS: 76770

== ENCOUNTER → 2024-07-23 | Outpatient (CLI) | payer MEDICARE, OTHER ==
--- NOTE | 2024-07-23 14:44 | US ---
EXAMINATION TYPE: US axilla RT DATE OF EXAM: 07/23/2024 COMPARISON: NONE CLINICAL INDICATION: Male, 78 years old with history of R22.31 MASS OR LUMP; Mass. TECHNIQUE: Scanned right axilla at patient's palpable area of concern. FINDINGS: No abnormalities seen at patient's palpable area of concern in the right axilla. Slightly medial to palpable, there appears to be a normal-appearing lymph node in the axilla. IMPRESSION: No sizable solid or cystic mass. Suggestion of a small normal-appearing lymph node in th e region. If there is a clinically palpable suspicious lesion correlate with CT scan. [facility], , 07/23/2024 2:41 PM
== END | disposition home or self-care (01) ==
LOC: RADUSWWP 14:04
PROVIDERS: ATTEND Family Medicine
DX: R22.31 Localized swelling, mass and lump, right upper limb (principal)